=== PATIENT | male | born 1985 | race Caucasian/White ===

== ENCOUNTER 2024-07-15 14:40 | Emergency (ER) | payer OTHER, SELFPAY ==
[2024-07-15] VITALS (7 sets, daily range): BP systolic 126–174; BP diastolic 84–115; BMI 21.4
--- NOTE | 2024-07-15 15:12 | ED.GENMED ---
ED Provider Triage
<Sharri Velez LIMB DRIVER - Last Filed: 07/16/24 14:22>
-
Patient seen by provider in Triage?: Seen in Triage
Attestation: A medical screening examination has been initiated by a qualified medical provider. Based on the assessment performed at this time, it has been determined that an emergent medical condition may exist and the patient has been informed
that further medical evaluation and possible additional diagnostic testing may be needed.
HPI: Pain left side abdominal pain 'skin crawling, I haven't eaten in a couple days. I have to do a bag (Fentanyl) every hour just to survive.' 'Somethings wrong with me'
Uses [employer] 16 bags, maybe more daily.
Seen at [facility] 2 weeks ago, had CT scan, labs, suggested he go to rehab. States that was not an option. But now is willing to do rehab.
States 'they didn't check me for STD' states it alas when he pees and has a little bit of penile discharge
'I'm scared to ' Denies headache, has been having chest pain 'in the middle of my chest and it's hard to breathe.'
Denies n/v/d/c.
Requesting records from [facility]
GENERAL: Alert , in no apparent distress
EYE: No visual abnormalities.
ENT: No visible abnormalities.
LUNGS: No acute respiratory distress
NEUROLOGICAL: Alert and oriented
SKIN: Skin intact. No visible changes.
MUSCULOSKELETAL: Moving extremities normally
PSYCH: Extremely anxious. appropriate interaction
This is a medical evaluation conducted in person to initiate diagnostic evaluation and provide initial therapeutics. Please see further documentation by the treating clinician.
History of Present Illness
<Sharri Velez LIMB DRIVER - Last Filed: 07/16/24 14:22>
General
Chief Complaint: Abdominal Pain
Source: patient
Exam Limitations: none
Time Seen by Provider: 07/15/24 18:51
Nursing documentation reviewed up to this point in time: agreed with
History of Present Illness
History of Present Illness:
Pain left side abdominal pain 'skin crawling, I haven't eaten in a couple days. I have to do a bag (Fentanyl) every hour just to survive.' 'Somethings wrong with me'
Uses [employer] 16 bags, maybe more daily.
Seen at [facility] 2 weeks ago, had CT scan, labs, suggested he go to rehab. States that was not an option. But now is willing to do rehab.
States 'they didn't check me for STD' states it alas when he pees and has a little bit of penile discharge
'I'm scared to ' Denies headache, has been having chest pain 'in the middle of my chest and it's hard to breathe.'
Denies n/v/d/c.
Phy Exam
<Sharri Velez, LIMB DRIVER - Last Filed: 07/16/24 14:22>
Physical Exam
Physical Exam:
GENERAL: No acute distress. A&Ox3.
CONSTITUTIONAL: Afebrile.
EYES: Clear, conjunctivae normal
ENMT: moist mucus membranes, Pharynx nl
RESPIRATORY: Regular respirations, nonlabored, lungs clear.
CARDIOVASCULAR: Regular rate and rhythm, no murmurs, no rubs.
GI: Soft, nontender, normal BS
MUSCULOSKELETAL: Moves with ease. Well perfused.
SKIN: Warm, dry, pink
PSYCH: Anxious mood and affect. Well kept, interactive and appropriate
NEUROLOGIC: Awake, alert and oriented. No focal neurological deficits
Course
<Sharri Velez, LIMB DRIVER - Last Filed: 07/16/24 14:22>
Orders/Labs/Results
Orders:
Orders
07/15/24 15:33
Complete Blood Count/With Diff Urgent
Comprehensive Metabolic Panel Urgent
Glycohemoglobin (HgbA1c) Urgent
Lipase Urgent
07/15/24 17:55
Fentanyl, Urine Urgent
Urinalysis Reflex To Culture Urgent
Specimen Description:
Date Specimen was Collected: 07/15/24
Time Specimen was Collected: 17:54
Urine Drug Abuse Screen Urgent
Date Specimen was Collected: 07/15/24
Time Specimen was Collected: 17:54
Chlamydia/GC by PCR Urgent
EDDIE Source: Urine
Specimen Description:
Source:: URINE
Date Specimen was Collected: 07/15/24
Time Specimen was Collected: 17:54
07/15/24 21:10
Lorazepam [Ativan] 1 mg PO NOW STA
CR Obstruct Series W/pa Chest Urgent
Comment:
Reason For Exam: abdominal pain
07/15/24 21:11
Add On- LAB Urgent
Tests Added?: hemoglobin A1C
07/16/24 01:18
Buprenorphine [Subutex] 4 mg SL NOW STA
Abnormal Lab Results
07/15/24 07/15/24 07/15/24
15:33 17:55 18:34
Immature Gran % 0.6 H %
(0-0.5)
Chloride 95 L mmol/L
(98-107)
Glucose 328 H mg/dl
(70-99)
Hemoglobin A1c 6.1 H %
(4.0-5.6)
Lipase 20 L U/L
(23-300)
Urine Glucose 3+ A
(Negative)
Urine Methadone Screen Positive H
(Negative)
Urine Fentanyl Screen Positive H
(Negative)
Ur Amphetamines Screen Positive H
(Negative)
U Methamphetamines Scrn Positive H
(Negative)
U Marijuana (THC) Screen Positive H
(Negative)
POC Glucose 203 H mg/dl
(70-99)
07/15/24 15:33
07/15/24 15:33
Vital Signs
Initial and Last Documented VS:
Initial Vital Signs
Temp Pulse Resp BP Pulse Ox
98.1 F 130 18 161/115 98
07/15/24 15:13 07/15/24 15:13 07/15/24 15:13 07/15/24 15:13 07/15/24 15:13
Last Documented Vital Signs
Temp Pulse Resp BP Pulse Ox
98.7 F 104 20 149/91 97
07/15/24 22:00 07/15/24 16:57 07/15/24 16:57 07/15/24 22:05 07/15/24 22:05
<Gilmer Stokes, DO - Last Filed: 07/16/24 02:21>
Orders/Labs/Results
Orders:
Orders
07/15/24 15:33
Complete Blood Count/With Diff Urgent
Comprehensive Metabolic Panel Urgent
Glycohemoglobin (HgbA1c) Urgent
Lipase Urgent
07/15/24 17:55
Fentanyl, Urine Urgent
Urinalysis Reflex To Culture Urgent
Specimen Description:
Date Specimen was Collected: 07/15/24
Time Specimen was Collected: 17:54
Urine Drug Abuse Screen Urgent
Date Specimen was Collected: 07/15/24
Time Specimen was Collected: 17:54
Chlamydia/GC by PCR Urgent
EDDIE Source: Urine
Specimen Description:
Source:: URINE
Date Specimen was Collected: 07/15/24
Time Specimen was Collected: 17:54
07/15/24 21:10
Lorazepam [Ativan] 1 mg PO NOW STA
CR Obstruct Series W/pa Chest Urgent
Comment:
Reason For Exam: abdominal pain
07/15/24 21:11
Add On- LAB Urgent
Tests Added?: hemoglobin A1C
07/16/24 01:18
Buprenorphine [Subutex] 4 mg SL NOW STA
Abnormal Lab Results
07/15/24 07/15/24 07/15/24
15:33 17:55 18:34
Immature Gran % 0.6 H %
(0-0.5)
Chloride 95 L mmol/L
(98-107)
Glucose 328 H mg/dl
(70-99)
Hemoglobin A1c 6.1 H %
(4.0-5.6)
Lipase 20 L U/L
(23-300)
Urine Glucose 3+ A
(Negative)
Urine Methadone Screen Positive H
(Negative)
Urine Fentanyl Screen Positive H
(Negative)
Ur Amphetamines Screen Positive H
(Negative)
U Methamphetamines Scrn Positive H
(Negative)
U Marijuana (THC) Screen Positive H
(Negative)
POC Glucose 203 H mg/dl
(70-99)
07/15/24 15:33
07/15/24 15:33
Vital Signs
Initial and Last Documented VS:
Initial Vital Signs
Temp Pulse Resp BP Pulse Ox
98.1 F 130 18 161/115 98
07/15/24 15:13 07/15/24 15:13 07/15/24 15:13 07/15/24 15:13 07/15/24 15:13
Last Documented Vital Signs
Temp Pulse Resp BP Pulse Ox
98.7 F 104 20 149/91 97
07/15/24 22:00 07/15/24 16:57 07/15/24 16:57 07/15/24 22:05 07/15/24 22:05
<Sharri Velez NP - Last Filed: 07/16/24 14:22>
*Critical Care Note
Total Time (30-74mins, 75-104mins- exclusive of procedures): Not Applicable
<Gilmer Stokes DO - Last Filed: 07/16/24 02:21>
Update Note
Update Note:
joann holland-suggests 7 days subutex, trying to get pt into outpt program
ED Attending Note
<Sharri Velez NP - Last Filed: 07/16/24 14:22>
-
Portions of this chart may have been created with voice recognition software.� Occasional wrong word or��sound alike� substitutions may have occurred due to the inherent limitations of voice recognition software.
Discharge Plan
Departure
Patient Disposition: Home (Routine Discharge)
Date of Disposition: 07/15/24
Time of Disposition: 22:45
Patient with high blood pressure during this ER visit?: No
Condition: Good
Discharge Problem:
Polysubstance abuse
Instructions: Nausea and Vomiting, Adult (DC)
Prescriptions:
New
buprenorphine HCl 2 mg tablet, sublingual
4 mg sublingual ONCE Qty: 14 0RF
ondansetron 4 mg tablet,disintegrating
4 mg PO Q8H PRN (Reason: nausea and vomiting) Qty: 10 0RF
buprenorphine HCl 2 mg tablet, sublingual
4 mg sublingual DAILY Qty: 14 0RF
Referrals:
NONE,* [Family Provider] -
Interventions
Interventions:
*Risk Screen - Suicide Last Done: 07/15/24 15:13
*General Assessment Last Done: 07/15/24 18:23
*Neglect/Abuse Screening Last Done: 07/15/24 15:13
ED- Fall Risk Assessment Last Done: 07/15/24 18:37
*ED COVID-19 Vaccine History Last Done: 07/15/24 18:23
*Nursing Disposition Last Done: 07/16/24 01:54
UE-Ecgnyl-Ulqtdykunk Assessment Last Done: 07/15/24 18:26
Discharge Date and Time
Discharge Date/Time: 07/16/24 01:55
Print Language: MONGOLIAN
[2024-07-15 15:51] LABS: % Basophils 0.4 % (0-2); % Eosinophils 0.7 % (0-6); % Immature Granulocytes 0.6 % (0-0.5); % Lymphocytes 25.9 % (20.5-51.1); % Neutrophils 66.4 % (42.2-75.2); Absolute Eosinophils 0.1 10^3/uL (0-0.7); Absolute Lymphocytes 1.8 10^3/uL (1.2-3.4); Absolute Monocytes 0.4 10^3/uL (0.1-0.6); Absolute Neutrophils 4.5 10^3/uL (1.4-6.5); Hematocrit 39.1 % (39.0-52.0); Hemoglobin 13.9 g/dL (13.0-18.0); Mean Corp Hgb Conc. 35.5 g/dL (33.0-37.0); Mean Corpuscular Hgb 29.1 pg (27.0-31.0); Mean Platelet Volume 9.9 fL (7.4-10.4); Nucleated Red Blood Cells % 0 % (-); Platelet Count 250 10^3/uL (130-400); Red Blood Cell Count 4.77 10^6/uL (4.70-6.10); Red Cell Dist. Width 11.9 % (11.5-14.5); White Blood Cell Count 6.8 10^3/uL (4.8-10.8)
[2024-07-15 16:09] LABS: ALT (SGPT) 19 U/L (0-50); AST (SGOT) 24 U/L (17-59); Albumin 4.5 g/dl (3.5-5.0); Alkaline Phosphatase 57 U/L (38-126); Blood Urea Nitrogen 13 mg/dl (9-20); Calcium 9.7 mg/dl (8.4-10.2); Carbon Dioxide 27 mmol/L (22-30); Chloride 95 mmol/L (98-107); Glucose 328 mg/dl (70-99); Lipase 20 U/L (23-300); Potassium 4.6 mmol/L (3.5-5.1); Sodium 135 mmol/L (135-145); Total Bilirubin 0.5 mg/dl (0.2-1.3); eGFR > 60.00
[2024-07-15 18:15] LABS: Urine Albumin Trace (Neg - Trace); Urine Bilirubin Negative (Negative); Urine Character Clear (Clear); Urine Color Yellow; Urine Glucose 3+ (Negative); Urine Ketone Negative (Negative); Urine Leukocyte Negative (Negative); Urine Nitrite Negative (Negative); Urine Occult Blood Negative (Negative); Urine Urobilinogen Negative (Neg - 1+)
[2024-07-15 18:31] LABS: Amphetamines Positive (Negative); Barbiturates Negative (Negative); Benzodiazepines Negative (Negative); Buprenorphine Negative (Negative); Cocaine Negative (Negative); Methadone Positive (Negative); Methamphetamines Positive (Negative)
[2024-07-15 18:32] LABS: Marijuana Positive (Negative); Opiates Negative (Negative); Phencyclidine Negative (Negative); Tricyclic Antidepressants Negative (Negative)
[2024-07-15 18:35] LABS: Glucose - Point of Care 203 mg/dl (70-99)
--- NOTE | 2024-07-15 19:20 | PTCARENOTE ---
Pt refusing to have security check his belongings. This Rn went in to speak to Pt. Reiterated hospitals policies. Pt states 'I don't want to get arrested. I just want to get checked.' Supportive care provided. Pt agreeable. Security at the bedside.
Mother left the room to go to the waiting room. Police in the hallway.
--- NOTE | 2024-07-15 19:59 | ED.GENMED ---
ED Provider Triage
<Lucas Calzada MD, Resident - Last Filed: 07/15/24 20:38>
-
Patient seen by provider in Triage?: Seen in Triage
History of Present Illness
<Lucas Calzada MD, Resident - Last Filed: 07/15/24 20:38>
General
Chief Complaint: Abdominal Pain
Source: patient and family (Mother)
Exam Limitations: other (generalize Dysphoria / Agitation )
Time Seen by Provider: 07/15/24 18:51
History of Present Illness
History of Present Illness:
HPI:
38 yo Male presenting to the ED with Complains of Diffuse/Generalized ABD Pain, that extends/radiate to his flanks bilaterally for 4 days of duration at this time and associated with severe chronic constipation in the face of chronic opioid use.
Patient stated he haven't had a BM for around 3 to 4 days now and rated his pain as a 10 out of 10 on a pain scale at the time he was seen-further limiting HX taking and stated he almost loosing it in here.
Pt was noted to be under a generalized dysphoric state, further stating he is currently scare of having a severe STDs infections, asked to be tested for STDS
Past History
<Lucas Calzada MD, Resident - Last Filed: 07/15/24 20:38>
Past History
ED Past Surgical History: Other (Unknown )
Patient has exhibited threatening behavior?: Yes (Moderately / In acute Distress)
Date of threatening behavior? (updated with each occurrence): 07/15/24
Social History
Drug: Other (Chronic - Opioid/Fentanyl Use)
Family History
Family History: Unable to obtain
Review of Systems
<Lucas Calzada MD, Resident - Last Filed: 07/15/24 20:38>
Review of Systems
Allergies reviewed?: No
Unable to obtain full review of systems at this time due to: other (generalized Dysphoria / In Severe Acute Distress )
Other source history: family (Mother )
All Other Systems: Not applicable (Unable to Obtain based on patient acute distress )
ABD/GI: Reports abdominal pain (Mildly Distended/Severe tenderness to palpation throughout ), nausea, constipated, anorexia, pain (Diffuse/Generalized ABD Tenderness radiating to the flanks billaterally ) and other (Constipation / No BM IN THE LAST
4 dAYS)
Neurological: Reports other (Generalize Dysphoria & associated Akathisia )
Psychiatric: Reports anxiety and other (Severe Agitation and notable generalized discomfort )
Phy Exam
<Lucas Calzada MD, Resident - Last Filed: 07/15/24 20:38>
General Physical Exam
General Presentation: severe distress
General Habitus: frail
General Mental: angry and anxious
General Hydration: appears well hydrated
ENT Exam
ENT Exam: EOMI and normocephalic
Eye Exam
Eye Exam: PERRL, EOMI and conjunctiva normal
Gastrointestinal Exam
Gastrointestinal Exam: distended, guarding and tender
Palpation: generalized: Severe tenderness (Throughout )
Neurological Exam
Neurological Exam: other (Dysphoria / Akathisia / NeuroMuscular Excitability)
Course
<Lucas Calzada MD, Resident - Last Filed: 07/15/24 20:38>
Orders/Labs/Results
Orders:
Orders
07/15/24 15:33
Complete Blood Count/With Diff Urgent
Comprehensive Metabolic Panel Urgent
Glycohemoglobin (HgbA1c) Urgent
Lipase Urgent
07/15/24 17:55
Fentanyl, Urine Urgent
Urinalysis Reflex To Culture Urgent
Specimen Description:
Date Specimen was Collected: 07/15/24
Time Specimen was Collected: 17:54
Urine Drug Abuse Screen Urgent
Date Specimen was Collected: 07/15/24
Time Specimen was Collected: 17:54
Chlamydia/GC by PCR Urgent
EDDIE Source: Urine
Specimen Description:
Source:: URINE
Date Specimen was Collected: 07/15/24
Time Specimen was Collected: 17:54
07/15/24 21:10
Lorazepam [Ativan] 1 mg PO NOW STA
CR Obstruct Series W/pa Chest Urgent
Comment:
Reason For Exam: abdominal pain
07/15/24 21:11
Add On- LAB Urgent
Tests Added?: hemoglobin A1C
07/16/24 01:18
Buprenorphine [Subutex] 4 mg SL NOW STA
Abnormal Lab Results
07/15/24 07/15/24 07/15/24
15:33 17:55 18:34
Immature Gran % 0.6 H %
(0-0.5)
Chloride 95 L mmol/L
(98-107)
Glucose 328 H mg/dl
(70-99)
Hemoglobin A1c 6.1 H %
(4.0-5.6)
Lipase 20 L U/L
(23-300)
Urine Glucose 3+ A
(Negative)
Urine Methadone Screen Positive H
(Negative)
Urine Fentanyl Screen Positive H
(Negative)
Ur Amphetamines Screen Positive H
(Negative)
U Methamphetamines Scrn Positive H
(Negative)
U Marijuana (THC) Screen Positive H
(Negative)
POC Glucose 203 H mg/dl
(70-99)
07/15/24 15:33
07/15/24 15:33
Vital Signs
Initial and Last Documented VS:
Initial Vital Signs
Temp Pulse Resp BP Pulse Ox
98.1 F 130 18 161/115 98
07/15/24 15:13 07/15/24 15:13 07/15/24 15:13 07/15/24 15:13 07/15/24 15:13
Last Documented Vital Signs
Temp Pulse Resp BP Pulse Ox
98.7 F 104 20 149/91 97
07/15/24 22:00 07/15/24 16:57 07/15/24 16:57 07/15/24 22:05 07/15/24 22:05
<Mathieu Browne MD - Last Filed: 07/17/24 15:11>
Orders/Labs/Results
Orders:
Orders
07/15/24 15:33
Complete Blood Count/With Diff Urgent
Comprehensive Metabolic Panel Urgent
Glycohemoglobin (HgbA1c) Urgent
Lipase Urgent
07/15/24 17:55
Fentanyl, Urine Urgent
Urinalysis Reflex To Culture Urgent
Specimen Description:
Date Specimen was Collected: 07/15/24
Time Specimen was Collected: 17:54
Urine Drug Abuse Screen Urgent
Date Specimen was Collected: 07/15/24
Time Specimen was Collected: 17:54
Chlamydia/GC by PCR Urgent
EDDIE Source: Urine
Specimen Description:
Source:: URINE
Date Specimen was Collected: 07/15/24
Time Specimen was Collected: 17:54
07/15/24 21:10
Lorazepam [Ativan] 1 mg PO NOW STA
CR Obstruct Series W/pa Chest Urgent
Comment:
Reason For Exam: abdominal pain
07/15/24 21:11
Add On- LAB Urgent
Tests Added?: hemoglobin A1C
07/16/24 01:18
Buprenorphine [Subutex] 4 mg SL NOW STA
Abnormal Lab Results
07/15/24 07/15/24 07/15/24
15:33 17:55 18:34
Immature Gran % 0.6 H %
(0-0.5)
Chloride 95 L mmol/L
(98-107)
Glucose 328 H mg/dl
(70-99)
Hemoglobin A1c 6.1 H %
(4.0-5.6)
Lipase 20 L U/L
(23-300)
Urine Glucose 3+ A
(Negative)
Urine Methadone Screen Positive H
(Negative)
Urine Fentanyl Screen Positive H
(Negative)
Ur Amphetamines Screen Positive H
(Negative)
U Methamphetamines Scrn Positive H
(Negative)
U Marijuana (THC) Screen Positive H
(Negative)
POC Glucose 203 H mg/dl
(70-99)
07/15/24 15:33
07/15/24 15:33
Vital Signs
Initial and Last Documented VS:
Initial Vital Signs
Temp Pulse Resp BP Pulse Ox
98.1 F 130 18 161/115 98
07/15/24 15:13 07/15/24 15:13 07/15/24 15:13 07/15/24 15:13 07/15/24 15:13
Last Documented Vital Signs
Temp Pulse Resp BP Pulse Ox
98.7 F 104 20 149/91 97
07/15/24 22:00 07/15/24 16:57 07/15/24 16:57 07/15/24 22:05 07/15/24 22:05
<Lucas Calzada MD, Resident - Last Filed: 07/15/24 20:38>
*Critical Care Note
Total Time (30-74mins, 75-104mins- exclusive of procedures): Not Applicable (25 Min.)
ED Attending Note
<Lucas Calzada MD, Resident - Last Filed: 07/15/24 20:38>
-
Portions of this chart may have been created with voice recognition software.� Occasional wrong word or��sound alike� substitutions may have occurred due to the inherent limitations of voice recognition software.
<Mathieu Browne MD - Last Filed: 07/17/24 15:11>
ED Attending Note
Patient seen and examined by attending physician: Yes
ED Attending Note:
Patient presents to ED secondary to persistent abdominal pain over the past 1 month. Abdominal pain described as crampy, diffuse, without any alleviating or exacerbating factors. Denies fever or chills. Denies nausea, vomiting, or diarrhea.
Denies trauma. Denies recent change in medications or diet. Patient was evaluated at [facility] emergency department 10 days ago, where he received normal blood work as well as CT scan of his abdomen. Patient was advised drug rehab, as his
continual opioid usage, including today, may be contributing to his ongoing abdominal discomfort.
Physical Exam
General: no apparent distress, not acutely ill. afebrile.
Head: nc/at. eomi
Neck: supple. no meningeal signs.
Heart: s1/s2 regular rate and rhythm, no murmur. equal radial pulses.
Lungs: no acute respiratory distress. clear bilaterally
Abdomen: normal bowel sounds. not tender. no distention.
Neuro: alert and oriented. no focal neurological deficits
Skin: no rash
Psychiatric: well kept. interactive and cooperative. anxious appearing
Extremities: no edema. no calf tenderness.
Patient with an unremarkable x-ray, which is suggestive of likely ileus resulting in constipation. With recent CT scan with same complaint, no indication for any further imaging studies at this time, i.e. CT scan. As patient's presenting symptoms,
likely secondary to chronic opioid use, patient is agreeable to speak with [facility] about potential inpatient rehab treatment.
Blood work, sig. for hyperglycemia, likely undiagnosed diabetes, as there is family history of diabetes. Pt will be advised to f/u with pmd for further evaluation and treatment, upon completion of rehab.
Discharge Plan
Departure
Patient Disposition: Home (Routine Discharge)
Date of Disposition: 07/15/24
Time of Disposition: 22:45
Patient with high blood pressure during this ER visit?: No
Condition: Good
Discharge Problem:
Polysubstance abuse
Instructions: Nausea and Vomiting, Adult (DC)
Prescriptions:
New
buprenorphine HCl 2 mg tablet, sublingual
4 mg sublingual ONCE Qty: 14 0RF
ondansetron 4 mg tablet,disintegrating
4 mg PO Q8H PRN (Reason: nausea and vomiting) Qty: 10 0RF
buprenorphine HCl 2 mg tablet, sublingual
4 mg sublingual DAILY Qty: 14 0RF
Referrals:
NONE,* [Family Provider] -
Interventions
Interventions:
*Risk Screen - Suicide Last Done: 07/15/24 15:13
*General Assessment Last Done: 07/15/24 18:23
*Neglect/Abuse Screening Last Done: 07/15/24 15:13
ED- Fall Risk Assessment Last Done: 07/15/24 18:37
*ED COVID-19 Vaccine History Last Done: 07/15/24 18:23
*Nursing Disposition Last Done: 07/16/24 01:54
PB-Ewydia-Tcipckwdre Assessment Last Done: 07/15/24 18:26
Discharge Date and Time
Discharge Date/Time: 07/16/24 01:55
Print Language: UKRAINIAN
[2024-07-15 20:09] LABS: Fentanyl, Urine Positive (Negative)
[2024-07-15] MEDS: ATIVAN 1 MG PO (21:16)
[2024-07-16] MEDS: SUBUTEX 4 MG SL (01:33)
[2024-07-16 09:02] LABS: Glycohemoglobin (HgbA1c) 6.1 % (4.0-5.6)
== END 2024-07-16 01:55 | disposition home or self-care (01) ==
LOC: EMR 14:40
PROVIDERS: Registered Nurse; EMERGENCY PHYSICIAN Emergency Medicine
DX: F19.10 Other psychoactive substance abuse, uncomplicated (principal)
CPT/HCPCS: 99284; 74022; 80053; 80306; 80307; 81003; 82962; 83036; 83690; 85025; 87491; 87591